=== PATIENT | male | born 1990 | race Caucasian/White ===

== ENCOUNTER → 2018-12-05 | Outpatient (CLI) | payer BC ==
[~2018-12-05] MED LIST: CITA20 PO; Crutch1 EACH MISC; PROM25 PO; Percocet 5-3251 EACH PO; RXOXYACE PO
== END | disposition home or self-care (01) ==
LOC: LAB EV 14:29 → LAB SHORT 14:29
DX: H61.031 Chondritis of right external ear (principal)
CPT/HCPCS: 87070; 87077; 87147; 87186; 87205

== ENCOUNTER → 2019-10-25 | Outpatient (CLI) | payer BC | END | disposition home or self-care (01) | LOC: LAB SHORT 09:03 → LAB EV 09:03 | DX: L08.9 Local infection of the skin and subcutaneous tissue, unspecified (principal) | CPT/HCPCS: 87070; 87075; 87077; 87147; 87186; 87205 ==